=== PATIENT | female | born 1990 | race Caucasian/White ===

== ENCOUNTER 2020-02-14 08:53 | Outpatient (CLI) | payer MEDICAID | END 2020-02-14 23:59 | disposition home or self-care (01) | LOC: RAD 08:53 | PROVIDERS: ATTEND Family Medicine | DX: R51 Headache (principal); G40.909 Epilepsy, unspecified, not intractable, without status epilepticus; J44.9 Chronic obstructive pulmonary disease, unspecified; E11.9 Type 2 diabetes mellitus without complications | CPT/HCPCS: 95816 ==